=== PATIENT | male | born 1950 | race Caucasian/White ===

== ENCOUNTER 2021-11-21 12:32 | Emergency (ER) | payer MEDICARE ==
[~2021-11-21] VITALS: Ht 162.6 cm; Wt 63.5 kg
[2021-11-21 12:38] VITALS: BP_SYST 120
[2021-11-21] MEDS ORDERED: HYDROcodone/ACETAMIN 5-325 MG TAB (NORCO/ VICODIN) ONE (12:39)
[2021-11-21] MEDS ORDERED: HYDROcodone/ACETAMIN 5-325 MG TAB (NORCO/ VICODIN) PO ONE (12:45)
[2021-11-21] MEDS ORDERED: LIDOCAINE 1% 10 MG/ML, 20 ML MDV INJ ONE (13:00)
[2021-11-21] MEDS ORDERED: CLIN-142 PO (13:13)
[2021-11-21] MEDS ORDERED: HYDR-3917 PO (13:13)
[2021-11-21] MEDS ORDERED: cefTRIAXone 1 GM VIAL IM ONE (13:30)
[2021-11-21 15:00] VITALS: BP_SYST 122
== END 2021-11-21 15:00 | disposition short-term general hospital (02) ==
LOC: SED 12:32
DX: S68.120A Partial traumatic metacarpophalangeal amputation of right index finger, initial encounter (principal); Z88.0 Allergy status to penicillin; Z79.899 Other long term (current) drug therapy; W45.8XXA Other foreign body or object entering through skin, initial encounter; Y93.89 Activity, other specified; Y92.89 Other specified places as the place of occurrence of the external cause; Y99.8 Other external cause status
CPT/HCPCS: 12002; 73140; 96372; 99285; J0696; J2001